=== PATIENT | male | born 1960 | race Caucasian/White ===

== ENCOUNTER 2016-11-05 08:50 | Emergency (ER) | payer OTHER ==
[~2016-11-05] VITALS: Ht 182.9 cm; Wt 117.9 kg
--- NOTE | 2016-11-05 08:58 | ED HAND/WRIST INJURY COMPLAINT ---
History of Present Illness General Chief Complaint: Laceration Procedure Stated Complaint: R PINKY LAC Source: patient, old records Exam Limitations: no limitations Vital Signs & Intake/Output Vital Signs & Intake/Output Vital Signs Date Time Temp Pulse Resp B/P Pulse O2 O2 Flow FiO2 Ox Delivery Rate 11/05 1033 88 138/94 11/05 0856 98.7 92 20 145/107 95 Room Air Allergies Coded Allergies: Penicillins (Severe, CHILDHOOD ALLERGY UNSURE OF REACTION 11/05/16) Reconcile Medications Lisinopril 20 MG TABLET 1 TAB PO DAILY HEART (Reported) Tamsulosin HCl 0.4 MG CAP.ER.24H 1 CAP PO DAILY PROSTATE (Reported) Triage Nurses Notes Reviewed? yes Occurred: just prior to arrival Duration: hour(s): (1), constant Timing: recent history Injury Environment: home Severity: moderate Severity Numbers: 3 Pain/Injury Location: Right: 5th finger. Context: fall Method of Injury: fall No Modifying Factors: none Associated Symptoms: none HPI: 56-year-old male with no medical history presents to emergency room for evaluation after he had a mechanical fall when he slipped walking down a hill while at work just prior to arrival landing on his right hand and right chest wall. He now presents with an obvious deformity to the right fifth finger and pain to the right lateral chest wall. He did not hit his head, there is no neck or back pain no loss of consciousness. He denies any right shoulder elbow forearm or wrist pain. He denies any other finger pain however states he cannot bend his right fifth finger. He denies any left arm or bilateral leg pain no back pain abdominal pain. No cough hemoptysis or difficulty breathing. The pain is not worse with deep inspiration. The patient has not taken anything for pain and is declining anything when offered. Past History Travel History Traveled to [place] past 21 day No Medical History Any Pertinent Medical History? none Tetanus Vaccine: 10/07/12 Surgical History Surgical History: non-contributory Psychosocial History Who do you live with Patient/Self Services at Home None What is your primary language Martiniquais Tobacco Use: Never used ETOH Use: denies use Illicit Drug Use: denies illicit drug use Family History Hx Contributory? No Review of Systems Review of Systems Constitutional: Reports: see HPI. All Other Systems: Reviewed and Negative Comments Review of systems: See HPI, All other systems negative. Constitutional, no chills no fever, no malaise HEENT: no sore throat no congestion, Cardiovascular: No chest pain , no palpitation , Skin, no rashes, no change in skin Respiratory: No dyspnea no cough no sputum no hemoptysis GI: No nausea no vomiting, no diarrhea, no bloating/constipation : No dysuria Muscle skeletal: joint pain, no joint swelling, Neurologic: No numbness no headache Psych: No stress Heme/endocrine: No bruising no bleeding Immunology: No lymphadenopathy, Physical Exam Physical Exam General Appearance: well developed/nourished, alert, awake, comfortable Hand Left: normal inspection Hand Right: 5th finger (+) DEFORMITY, FULL SENSATION) Comments: Well-developed well-nourished person in no acute distress HEENT: Normal EENT exam; PERRL, EOMI HEAD is atraumatic. moist mucous membranes. Neck: Supple,normal range of motion Back: Nontender, Full range of motion Cardiovascular: Regular rate and rhythms no murmurs rubs Respiratory: Chest nontender.no ecchymosis or signs of trauma There were no bony deformities, no asymmetry. No respiratory distress. Patient speaking in full complete sentences. Breath sounds clear to auscultation bilaterally: NO W/R/R Abdomen: Soft, nontender nondistended, no appreciable organomegaly. Normal bowel sounds. No rebound/guarding, Shoulder: Atraumatic/Stable. FROM . Elbow: Atraumatic/stable. FROM. No laxity Upper arm/Forearm: Atraumatic. Nontender. No edema, 5 out of 5 lower in supervisor strength noted to bilateral upper extremities Hand/Wrist: Positive deformity to the right fifth finger, full sensation to the distal aspect Refills within normal limits, there are superficial abrasions noted to the palmar aspect the right and left hand, the hands are otherwise nontender, there is no scaphoid tenderness bilaterally no other ecchymosis noted to the upper extremities, stable. Skin intact. FROM Pulses: Normal/equal radial pulses bilaterally. Brisk cap refill Lower Extremity: No edema, full range of motion of extremities, normal and equal pulses bilaterally, 5 out of 5 strength noted to bilateral upper and lower extremities Neuro: Alert oriented x3, motor sensory normal, cranial nerves II through XII grossly intact. There were no obvious focal neurologic abnormalities. Skin: No appreciable rash on exposed skin, skin is warm and dry. Psych: Mood and affect is normal, memory and judgment is normal. Progress Differential Diagnosis: contusion, compartment syndrome, dislocation, fracture, sprain, RIB FX, PNTHX, ABD INJURY,S NIC INJURY Plan of Care: Orders Procedure Date/time Status XRY-FINGERS, RIGHT 11/05 102 Active XRY-FINGERS, RIGHT 11/05 915 Active Patient declining anything for pain when offered Repeat evaluation patient is been declining anything when offered I discussed with him his x-ray results to date, digital block using lidocaine 1% 60 mL was performed to the right fifth finger by myself patient tolerated suture well, the right fifth finger PIP joint was successfully reduced, the patient has full range of motion both active and passive after reduction splinted was applied sterile dressings bacitracin was applied to the abrasions Repeat x-ray was ordered Discussed the patient has repeat x-ray results advised need for supportive care rest Tylenol Motrin close follow-up with hand Dr. Herrera information was provided, I advised return anytime sooner with any concerns he feels this plan there is full sensation Refill remains within normal limits TV right fifth finger (HALEY DE LA PAZ,HAZEL) Diagnostic Imaging: Viewed by Me: Radiology Read. Discussed w/RAD: Radiology Read. Radiology Impression: PATIENT: NATHALIE GUALLPA PRESENT AGE: 56 PATIENT ACCOUNT NO: [id number] : 56 LOCATION: [facility] ORDERING PHYSICIAN: HAZEL DE LA PAZ SERVICE DATE: 11/05/16 EXAM TYPE: RAD - XRY-FINGERS, RIGHT EXAMINATION: XR FINGER, RIGHT CLINICAL INFORMATION: Post reduction. COMPARISON: Same day radiographs. TECHNIQUE: AP and lateral views of the right little finger. FINDINGS: Normal alignment of the 5th finger following placement of a splint. There is a small calcification at the dorsal aspect of the DIP joint which may be degenerative. No definite fracture at the PIP joint. IMPRESSION: Normal alignment of the 5th finger following placement of a splint. There is a small calcification at the dorsal aspect of the DIP joint which may be degenerative. No definite fracture at the PIP joint. DICTATED BY: CATHIE CHANEL MD DATE/TIME DICTATED:11/05/161127 [place] ENAMEL REPAIRER: IVETH DATE/TIME TRANSCRIBED:11/05/161127 CONFIDENTIAL, DO NOT COPY WITHOUT APPROPRIATE AUTHORIZATION. <Electronically signed in Other Vendor System> SIGNED BY: CATHIE CHANEL MD 11/05/16 1144, PATIENT: NATHALIE GUALLPA PRESENT AGE: 56 PATIENT ACCOUNT NO: [id number] : 56 LOCATION: [facility] ORDERING PHYSICIAN: HAZEL DE LA PAZ SERVICE DATE: 11/05/16 EXAM TYPE: RAD - XRY-FINGERS, RIGHT EXAMINATION: XR FINGER, RIGHT CLINICAL INFORMATION: Deformity of the right fifth finger. Fracture dislocation COMPARISON: None TECHNIQUE: Three views of the right small finger. FINDINGS: The small finger is flexed at the PIP joint without subluxation or dislocation. There is a small fragmented osteophyte at the dorsal aspect of the small finger distal phalangeal base. Otherwise, no acute fractures are identified. 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 Moderate degenerative arthritis is present at the first CMC and triscaphe joints. Mild degenerative arthritis is present in the DRUJ as well. Microplate and screw fixation construct is noted at the long finger proximal phalangeal shaft. IMPRESSION: Flexion of the small finger PIP joint with normal extension of the DIP joint. This alignment can be seen with extensor tendon injuries. Age indeterminant fragmented osteophyte at the dorsum of the small finger distal phalangeal base, potentially from an avulsion injury at the extensor tendon insertion. No displacement. Recommend correlation for point tenderness in this region to determine acuity. DICTATED BY: JODY HUYNH MD DATE/TIME DICTATED:11/05/161039 [place] ENAMEL REPAIRER:IVETH DATE/TIME TRANSCRIBED:11/05/161039 CONFIDENTIAL, DO NOT COPY WITHOUT APPROPRIATE AUTHORIZATION. <Electronically signed in Other Vendor System> SIGNED BY: JODY HUYNH MD 11/05/16 1048, PATIENT: NATHALIE GUALLPA PRESENT AGE: 56 PATIENT ACCOUNT NO: [id number] : 56 LOCATION: [facility] ORDERING PHYSICIAN: HAZEL DE LA PAZ SERVICE DATE: 11/05/16 EXAM TYPE: RAD - XRY-RIBS UNILATERAL-RIGHT EXAMINATION: 3 RIB VIEWS AND PA CHEST CLINICAL INFORMATION: Fall. Flank pain. Right rib pain. Rule out fracture. COMPARISON: None. TECHNIQUE: PA view of the chest and AP and both oblique views of the right ribs were obtained. FINDINGS: A mildly displaced fracture of the right sixth rib laterally is chronic in appearance, favored to be healed. No acute superimposed fractures are identified. Ribs otherwise unremarkable. Degenerative spondylosis is present in the thoracic spine. Mild degenerative changes are present in the acromioclavicular joints. Lungs are clear. No consolidation, pneumothorax, or pleural effusion. Pulmonary vasculature and cardiac silhouette are unremarkable. IMPRESSION: Healed, chronic fracture of the right lateral sixth rib. No acute fractures are identified. No acute pulmonary findings. DICTATED BY: JODY HUYNH MD DATE/TIME DICTATED:11/05/161036 PORC[place]AIN ENAMEL REPAIRER:IVETH DATE/TIME TRANSCRIBED:11/05/161036 CONFIDENTIAL, DO NOT COPY WITHOUT APPROPRIATE AUTHORIZATION. <Electronically signed in Other Vendor System> SIGNED BY: JODY HUYNH MD 11/05/16 1044 Departure Departure Time of Disposition: 1021 Disposition: HOME OR SELF CARE Condition: Stable Clinical Impression Primary Impression: Finger dislocation Secondary Impressions: Fall, Finger fracture, right, Rib contusion Referrals: JONA BILLS,SMITHA (PCP/Family) HAYDEN BILLS,JOSE Additional Instructions: Rest ice Tylenol Motrin for pain finger splint as discussed. Follow up with hand specialist Dr. Herrera, return anytime sooner with any concerns. Departure Forms: Customer Survey General Discharge Information Procedures Additional Procedures Additional Procedures: digital block right 5th finger- lidocaine 1% 5cc used, pt tolerated procedure well, r 5th pip joint reduced by me ag, finger nvt prior to and after reduction, splint applied by
[2016-11-05] MEDS ORDERED: LISINOPRIL20 M1 PO (09:21)
[2016-11-05] MEDS ORDERED: TAMSULOSIN HCL0.4 M1 PO (09:22)
[2016-11-05 10:33] VITALS: BP 138/94
--- NOTE | 2016-11-05 10:44 | RADIOLOGY REPORT ---
EXAMINATION: 3 RIB VIEWS AND PA CHEST CLINICAL INFORMATION: Fall. Flank pain. Right rib pain. Rule out fracture. COMPARISON: None. TECHNIQUE: PA view of the chest and AP and both oblique views of the right ribs were obtained. FINDINGS: A mildly displaced fracture of the right sixth rib laterally is chronic in appearance, favored to be healed. No acute superimposed fractures are identified. Ribs otherwise unremarkable. Degenerative spondylosis is present in the thoracic spine. Mild degenerative changes are present in the acromioclavicular joints. Lungs are clear. No consolidation, pneumothorax, or pleural effusion. Pulmonary vasculature and cardiac silhouette are unremarkable. IMPRESSION: Healed, chronic fracture of the right lateral sixth rib. No acute fractures are identified. No acute pulmonary findings.
--- NOTE | 2016-11-05 10:48 | RADIOLOGY REPORT ---
EXAMINATION: XR FINGER, RIGHT CLINICAL INFORMATION: Deformity of the right fifth finger. Fracture dislocation COMPARISON: None TECHNIQUE: Three views of the right small finger. FINDINGS: The small finger is flexed at the PIP joint without subluxation or dislocation. There is a small fragmented osteophyte at the dorsal aspect of the small finger distal phalangeal base. Otherwise, no acute fractures are identified. 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 Moderate degenerative arthritis is present at the first CMC and triscaphe joints. Mild degenerative arthritis is present in the DRUJ as well. Microplate and screw fixation construct is noted at the long finger proximal phalangeal shaft. IMPRESSION: Flexion of the small finger PIP joint with normal extension of the DIP joint. This alignment can be seen with extensor tendon injuries. Age indeterminant fragmented osteophyte at the dorsum of the small finger distal phalangeal base, potentially from an avulsion injury at the extensor tendon insertion. No displacement. Recommend correlation for point tenderness in this region to determine acuity.
--- NOTE | 2016-11-05 11:44 | RADIOLOGY REPORT ---
EXAMINATION: XR FINGER, RIGHT CLINICAL INFORMATION: Post reduction. COMPARISON: Same day radiographs. TECHNIQUE: AP and lateral views of the right little finger. FINDINGS: Normal alignment of the 5th finger following placement of a splint. There is a small calcification at the dorsal aspect of the DIP joint which may be degenerative. No definite fracture at the PIP joint. IMPRESSION: Normal alignment of the 5th finger following placement of a splint. There is a small calcification at the dorsal aspect of the DIP joint which may be degenerative. No definite fracture at the PIP joint.
== END 2016-11-05 11:17 ==
LOC: ERH 08:50
DX: S62.616A Displaced fracture of proximal phalanx of right little finger, initial encounter for closed fracture (principal); S20.211A Contusion of right front wall of thorax, initial encounter; W19.XXXA Unspecified fall, initial encounter
CPT/HCPCS: 71100-RT; 73140-RT